=== PATIENT | male | born 1990 | race Two or more races ===

== ENCOUNTER 2024-05-26 17:28 | Emergency (ER) | payer OTHER ==
[~2024-05-26] VITALS: Ht 177.8 cm; Wt 121.3 kg
--- NOTE | 2024-05-26 17:50 | ED.PDOC ---
GI ASSESSMENT HPI Comments HPI: Poor Historian. 33-year-old male presents with a chief complaint of rectal bleeding x onset 1 hour before arrival. Patient reports that he noticed that when he used the restroom there was bright red blood when he was wiping, Patient mentions that the color of his stool was normal brown. Patient denies any pain upon defecation. Denies any other past medical history PMHx: Denies any PSHx: Denies any REVIEW OF SYSTEMS: CONSTITUTIONAL: Denies acute: fever, diaphoresis, chills, generalized weakness. HEAD: Denies acute: headache, photophobia Eyes: Denies acute: Double vision, vision loss, eye pain, eye discharge. EARS: Denies acute: tinnitus, hearing loss, ear discharge, ear pain, THROAT: Denies acute: sore throat, swelling, difficulty swallowing , pain with swallowing, change in voice. NECK: Denies acute: neck pain, neck swelling, stiff neck. HEART: Denies acute : chest pain, palpitations, LUNGS: Denies acute: SOB, wheezing, cough, hemoptysis ABDOMEN: Denies acute: abdominal pain, Nausea, Vomiting, diarrhea, melena , hematemesis, SKIN: Denies acute: rash, redness, lesions, itchiness. EXTREMITIES: Denies acute: calf pain, numbness, tingling, weakness, denies pain in extremity. Denies acute: Low back pain. Neuro: Denies acute: focal neurological deficit, motor or sensory focal neurological deficit, tremors, seizure like activity, confusion, dizziness, change in mental status, loss of bowel or bladder function, cauda equina like symptoms. : Denies acute: dysuria, hematuria, flank pain, increase in urinary frequency. PSYCH: Denies acute: hallucination, suicidal ideation, homicidal ideation. PHYSICAL EXAM: General: no acute distress, awake and alert. Head: normocephalic, atraumatic. Neck: supple, trachea is midline, no swelling. Throat: Normal phonation. Eyes:, no erythema, no purulent discharge, no proptosis, no icterus. Heart: regular rate, regular rhythm, no significant murmur appreciated. Lungs: no apparent respiratory distress, Able to speak in full sentences. No wheezing, no rhonchi, no crackles. No stridors Clear to auscultation bilaterally. Abdomen: non tender to palpation, non distended, soft, no guarding, no rebound, + bowel sounds. External inspection of the rectum/anus reveals no apparent hemorrhoids or fissures or active bleeding. Neuro: Awake, Alert, oriented to name, self, situation, follows commands GCS=15. Speech is normal. Skin: no petechia, no purpura, no cyanosis, non-pale, not jaundice. Lower extremities: --no - Pitting edema no deformity, no focal swelling, no calf TTP. Makes eye contact. moves all four extremities. Face: no apparent facial droop. Ambulating in the ED independently. ED COURSE: Chief Complaint: GI Bleed Time Seen by MD: 17:45 Reviewed Notes: Nurses Notes, Allergies Allergies: Coded Allergies: NO KNOWN ALLERGIES (Unverified , 05/26/24) Information Source: Patient Mode of Arrival: Ambulatory Past Medical History PAST MEDICAL HISTORY: Denies Surgical History: Denies all surgeries Family History Family History: Reviewed,noncontributory to illness Social History Smoker: Non-Smoker Alcohol: Denies ETOH Use Drugs: Denies Drug Use Lives In: Home Was a procedure done? Was a procedure done?: No GI differential Dx Differential Diagnosis: Other (Diverticulitis, colitis, fistula, neoplasm, hemorrhoids, anal fissures, constipation, Crohn's disease, ulcerative colitis) X-Ray, Labs, Meds, VS Vital Signs Date Time Temp Pulse Resp B/P (MAP) Pulse Ox O2 Delivery O2 Flow Rate FiO2 05/26/24 23:16 95 16 134/87 (103) 100 05/26/24 20:48 112 16 100 Room Air* 0 21 05/26/24 20:47 98.5 112 16 142/95 (111) 100 98.5 05/26/24 17:41 98.5 119 20 134/97 (109) 98 Lab Test 05/26/24 21:55 05/26/24 18:00 05/26/24 17:40 Range/Units Hemoglobin 16.9 16.1 13.5-17.5 g/dL Hematocrit 47.6 45.2 41.0-53.0 % White Blood Count 6.8 4.4-10.8 10^3/uL Red Blood Count 5.17 4.5-5.90 10^6/uL Mean Corpuscular Volume 87.4 80.0-100.0 fL Mean Corpuscular Hemoglobin 31.1 28.0-32.0 pg Mean Corpuscular Hemoglobin Concent 35.6 32.0-36.0 g/dL Red Cell Distribution Width 12.7 11.8-14.3 % Platelet Count 221 140-450 10^3/uL Mean Platelet Volume 7.7 6.9-10.8 fL Neutrophils (%) (Auto) 57.9 37.0-80.0 % Lymphocytes (%) (Auto) 32.1 10.0-50.0 % Monocytes (%) (Auto) 8.0 0.0-12.0 % Eosinophils (%) (Auto) 1.4 0.0-7.0 % Basophils (%) (Auto) 0.6 0.0-2.0 % Neutrophils # (Auto) 3.9 1.6-8.6 10 ^3/uL Lymphocytes # (Auto) 2.2 0.4-5.4 10 ^3/uL Monocytes # (Auto) 0.5 0-1.3 10 ^3/uL Eosinophils # (Auto) 0.1 0-0.8 10 ^3/uL Basophils # (Auto) 0 0-0.2 10 ^3/uL Nucleated Red Blood Cells 0.1 % Sodium Level 139 136-145 mmol/L Potassium Level 3.6 3.5-5.1 mmol/L Chloride Level 103 98-107 mmol/L Carbon Dioxide Level 22 20-31 mmol/L Anion Gap 14 5-15 Blood Urea Nitrogen 8 L 9-23 mg/dL Creatinine 0.86 0.700-1.30 mg/dL Glomerular Filtration Rate Calc 117 >90 mL/min BUN/Creatinine Ratio 9.3 L 10.0-20.0 Serum Glucose 102 74-106 mg/dL Lactic Acid Level 1.9 0.4-2.0 mmol/L Calcium Level 10.7 H 8.7-10.4 mg/dL Total Bilirubin 0.5 0.2-1.0 mg/dL Aspartate Amino Transferase (AST) 91 H 13-40 U/L Alanine Aminotransferase (ALT) 208 H 7-40 U/L Alkaline Phosphatase 57 46-116 U/L Total Protein 8.0 5.7-8.2 g/dL Albumin 5.3 H 3.2-4.8 g/dL Urine Color Colorless Yellow Urine Clarity Clear Clear Urine pH 5.5 5.0-9.0 Urine Specific [place] 1.002 1.001-1.035 Urine Protein Negative Negative Urine Ketones Negative Negative Urine Blood Negative Negative /uL Urine Nitrite Negative Negative Urine Bilirubin Negative Negative Urine Urobilinogen Normal Negative mg/dL Urine Leukocyte Esterase Negative Negative /uL Urine RBC None seen 0 - 3 /hpf Urine Microscopic WBC 0-3 /HPF Urine Squamous Epithelial Cells None seen <5 /hpf Urine Bacteria None seen None Seen /hpf Urine Glucose Normal Normal mg/dL Current Medications Medications (Trade) Dose Ordered Sig/Michela Route Start Time Stop Time Status Last Admin Sodium Chloride 1,000 ml @ 1,000 mls/hr Q1H ONCE IV 05/26/24 19:30 05/26/24 20:29 DC 05/26/24 20:45 [place] [address] Ph: [phone] DIAGNOSTIC IMAGING Diagnostic Imaging Report : [id number] Signed PATIENT: JOY MAYORGA ACCT: [id number] UNIT: [id number] : 1990 LOC: ER ROOM / BED: / AGE / SEX: 33 / M ADM STATUS: REG ER SERVICE [id number] ORDERING PHYSICIAN: KARIN GARCIA DO PROCEDURE(s): ABPLIV - CT AB PEL WITH IV CON ONLY REASON: rectal bleed ORDER NUMBER(s): [id number], ACCESSION NUMBER(s): [id number] Exam: CT AB PEL WITH IV CON ONLY History: rectal bleed Comparison Study: None Contrast: Type of contrast: Contrast injected: Contrast wasted: 0 TECHNIQUE: Multidetector CT of abdomen and pelvis IV contrast. Radiation Dose Information: CT Dose: CTDI volume is 24.43 mGy. Dose-length product is 1600.48 mGy*cm FINDINGS: Lung bases are clear. Heart size is normal. Lower esophagus is still probably normal Patient has a diffusely fatty infiltrated liver Spleen is enlarged at 13.94 cm. Pancreas is unremarkable gallbladder is unremarkable. Common bile duct is normal. Adrenals kidneys are normal. The appendix is unremarkable. Bladder: Small bowel are normal. Liver is enlarged 20.4 cm. Duodenum is normal stomach mucosa is unremarkable.. Bone density is normal no focal lesions in the IMPRESSION: 1. Hepatosplenomegaly and diffusely fatty infiltrated liver. ATED BY: HARSHAD BONE MD DICTATED DATE/TIME: 05/26/242042 SIGNED BY: HARSHAD BONE MD SIGNED DATE/TIME: 05/26/242042 CC: Time of 1ST Reevaluation: 18:15 Reevaluation 1ST: Unchanged Patient Education/Counseling: Diagnosis, Treatment Family Education/Counseling: No Family Present Comments Patient was unable to provide us a stool sample.\ Patient presented with the above HPI.--rectal bleed----workup was initiated. p atient was found with the above mentioned diagnosis. the following medications were ordered: please refer to order lists of meds and tests obtained by myself Dr. Garcia. Patient ED course and VS have been stabilized. Patient has been reassessed in [facility] ED and remained in a stable condition. Pertinent incidental findings were discussed with the patient and/or family. Patient/family voices understanding and is agreeable with plan. Patient has been observed in the ED adequate length of time to insure improvement/stability. Escalation of care considered: Consideration of escalation to observation or admission Patient was DISCHARGED home in a stable condition. All the reports of any imaging studies that were ordered by myself were reviewed by myself. Departure 1 Departure Time of Disposition: 23:02 Impression: Primary Impression: Hematochezia Additional Impression: Hepatosplenomegaly Disposition: 01 HOME / SELF CARE / HOMELESS Condition: Stable Additional Instructions: Additional discharge instructions: You MUST follow-up with your primary care/family doctor in 1 to 2 days. If you are unable to see your primary care/family doctor, please return to our emergency room for re-assessment and re-evaluation in 1 to 2 days. Return to the emergency room here in our facility or to the nearest ER [facility] if your symptoms change or worsen. CONSULTATIONS: you MUST Follow-up for consultation as soon as possible with: -gastrointestinal doctor in 1-2 days. Please call for appointment. You MUST call the consultants office yourself to make an appointment. You may need to arrange that through your insurance and/or your primary/family doctor. If you are unable to see the oncology consultant in 1 to 2 days, you must return to our emergency room (or any other ER of your choice) for re-assessment and re- evaluation. Adequate fluid hydration. Stopped drinking alcohol. Avoid NSAIDs such as Advil and ibuprofen. Increase fiber intake. Below is a copy of your radiological report for follow up: [address] [address] Ph: [phone] DIAGNOSTIC IMAGING Diagnostic Imaging Report : [id number] Signed PATIENT: JOY MAYORGA ACCT: [id number] UNIT: [id number] : 1990 LOC: ER ROOM / BED: / AGE / SEX: 33 / M ADM STATUS: REG ER SERVICE 41 ORDERING PHYSICIAN: KARIN GARCIA DO PROCEDURE(s): ABPLIV - CT AB PEL WITH IV CON ONLY REASON: rectal bleed ORDER NUMBER(s): [id number], ACCESSION NUMBER(s): [id number] Exam: CT AB PEL WITH IV CON ONLY History: rectal bleed Comparison Study: None Contrast: Type of contrast: Contrast injected: Contrast wasted: 0 TECHNIQUE: Multidetector CT of abdomen and pelvis IV contrast. Radiation Dose Information: CT Dose: CTDI volume is 24.43 mGy. Dose-length product is 1600.48 mGy*cm FINDINGS: Lung bases are clear. Heart size is normal. Lower esophagus is still probably normal Patient has a diffusely fatty infiltrated liver Spleen is enlarged at 13.94 cm. Pancreas is unremarkable gallbladder is unremarkable. Common bile duct is normal. Adrenals kidneys are normal. The appendix is unremarkable. Bladder: Small bowel are normal. Liver is enlarged 20.4 cm. Duodenum is normal stomach mucosa is unremarkable.. Bone density is normal no focal lesions in the IMPRESSION: 1. Hepatosplenomegaly and diffusely fatty infiltrated liver. ATED BY: HARSHAD BONE MD DICTATED DATE/TIME: 05/26/242042 SIGNED BY: HARSHAD BONE MD SIGNED DATE/TIME: 05/26/242042 CC: Discharged With: Self Critical Care Note Critical Care Time?: No I personally scribed for KARIN GARCIA DO ([email or web address]) on 05/26/24 at 17:50. Electronically submitted by Sabas Garcia ([email or web address]). KARIN GARCIA DO May 26, 2024 17:50
[2024-05-26 18:08] LABS: Urine Bacteria None Seen /hpf (None Seen)
[2024-05-26 18:23] LABS: Basophils # (auto) 0 10 ^3/uL (0-0.2); Basophils % (auto) 0.6 % (0.0-2.0); Eosinophils # (auto) 0.1 10 ^3/uL (0-0.8); Eosinophils % (auto) 1.4 % (0.0-7.0); Hematocrit 45.2 % (41.0-53.0); Hemoglobin 16.1 g/dL (13.5-17.5); Lymphocytes # (auto) 2.2 10 ^3/uL (0.4-5.4); Lymphocytes % (auto) 32.1 % (10.0-50.0); Mean Corpuscular Hemoglobin 31.1 pg (28.0-32.0); Mean Corpuscular Hgb Conc. 35.6 g/dL (32.0-36.0); Mean Corpuscular Volume 87.4 fL (80.0-100.0); Monocytes # (auto) 0.5 10 ^3/uL (0-1.3); Neutrophils # (auto) 3.9 10 ^3/uL (1.6-8.6); Neutrophils % (auto) 57.9 % (37.0-80.0); Nucleated Red Blood Cells % 0.1 %; Platelet Count (auto) 221 10^3/uL (140-450); Red Blood Cells 5.17 10^6/uL (4.5-5.90); Red Cell Distribution Width 12.7 % (11.8-14.3); White Blood Cell 6.8 10^3/uL (4.4-10.8)
[2024-05-26 18:27] LABS: Urine Blood Negative /uL (Negative); Urine Clarity Clear (Clear); Urine Color Colorless (Yellow); Urine Protein, UAD Negative (Negative); Urine Specific Gravity 1.002 (1.001-1.035); Urine Squamous Epithelial Cell None Seen /hpf (<5); Urine Urobilinogen Normal (Negative); Urine pH 5.5 (5.0-9.0)
[2024-05-26 18:55] LABS: Alkaline Phosphatase 57 U/L (46-116); Anion Gap 14 (5-15); BUN/Creatinine Ratio 9.3 (10.0-20.0); Bilirubin, Total 0.5 mg/dL (0.2-1.0); Carbon Dioxide 22 mmol/L (20-31); Chloride 103 mmol/L (98-107); Glucose 102 mg/dL (74-106); Potassium 3.6 mmol/L (3.5-5.1); Sodium 139 mmol/L (136-145)
[2024-05-26 19:06] LABS: Alanine Aminotransferase 208 U/L (7-40); Albumin 5.3 g/dL (3.2-4.8); Aspartate Aminotransferase 91 U/L (13-40); Blood Urea Nitrogen 8 mg/dL (9-23); Calcium 10.7 mg/dL (8.7-10.4)
[2024-05-26] MEDS: SODIUM CHLORIDE 0.9% 1,000 ML IV ONE (20:45)
[2024-05-26] MEDS: IOHEXOL 300 MG/ML 100ML BOTTLE IJ ONE (20:45)
--- NOTE | 2024-05-26 20:46 | DVH ---
Exam: CT AB PEL WITH IV CON ONLY History: rectal bleed Comparison Study: None Contrast: Type of contrast: Contrast injected: Contrast wasted: 0 TECHNIQUE: Multidetector CT of abdomen and pelvis IV contrast. Radiation Dose Information: CT Dose: CTDI volume is 24.43 mGy. Dose-length product is 1600.48 mGy*cm FINDINGS: Lung bases are clear. Heart size is normal. Lower esophagus is still probably normal Patient has a diffusely fatty infiltrated liver Spleen is enlarged at 13.94 cm. Pancreas is unremarkable gallbladder is unremarkable. Common bile duct is normal. Adrenals kidneys are normal. The appendix is unremarkable. Bladder: Small bowel are normal. Liver is enlarged 20.4 cm. Duodenum is normal stomach mucosa is unre markable.. Bone density is normal no focal lesions in the IMPRESSION: 1. Hepatosplenomegaly and diffusely fatty infiltrated liver.
[2024-05-26 20:47] VITALS: TEMP 98.5
[2024-05-26 20:48] VITALS: PULSE 112; RESP 16; O2SAT 100
[2024-05-26 22:10] LABS: Hematocrit 47.6 % (41.0-53.0); Hemoglobin 16.9 g/dL (13.5-17.5)
[2024-05-26 23:16] VITALS: BP 134/87; PULSE 95; RESP 16; O2SAT 100
== END 2024-05-26 23:15 | disposition home or self-care (01) ==
LOC: ER 17:28
DX: K92.1 Melena (principal); R16.2 Hepatomegaly with splenomegaly, not elsewhere classified
CPT/HCPCS: 36415; 74177; 80053; 81001; 83605; 85014; 85018; 85025; 96360; 99285; J7030; Q9967